=== PATIENT | male | born 1980 | race Caucasian/White ===

== ENCOUNTER 2017-11-04 17:06 | Emergency (ER) | payer BC ==
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
== END 2017-11-04 18:20 | disposition home or self-care (01) ==
LOC: DL.ED 17:06
DX: S43.101A Unspecified dislocation of right acromioclavicular joint, initial encounter (principal); V89.9XXA Person injured in unspecified vehicle accident, initial encounter
CPT/HCPCS: 73030-RT; 99285